=== PATIENT | male | born 1955 | race Caucasian/White ===

== ENCOUNTER 2017-04-24 14:36 | Emergency (ER) | payer SELFPAY ==
[~2017-04-24] VITALS: Ht 175.2 cm; Wt 72.6 kg
[~2017-04-24 14:36] MED LIST: ANAPROX DS550 MG PO; ASPIRIN CHILDRE81 MG PO; DAYPRO600 M1 PO; DELTASONE10 MG PO; FLEXERIL5 MG PO; HYDROCODONE BIT1 T11 PO; KEFLEX500 MG PO; LEVOFLOXACIN500 MG PO; MEDROL DOSEPAK4 MG PO; MOTRIN600 MG PO; MOTRIN800 MG PO; NKHM; NO DAILY MEDS; PREDNICOT20 MG PO; ROBAXIN750 MG PO; ROBITUSSIN DM 105 ML PO; TOBREX OPHTH S2.5 ML OPH; TRAMADOL HCL50 MG PO; VENTOLIN H0.09 MG/AC INH; VICODIN 500 MG-1 TAB PO; VICODIN ES 7501 TAB PO; VITAMIN B12500 MCG PO; ZITHROMAX Z PA250 MG PO
[2017-04-24 14:41] VITALS: BP 148/92
[2017-04-24] MEDS ORDERED: MELOXICAM15 MG PO (14:42)
[2017-04-24] MEDS ORDERED: PREDNISONE10 MG PO (15:01)
== END 2017-04-24 15:09 | disposition home or self-care (01) ==
LOC: ED 14:36
DX: L23.7 Allergic contact dermatitis due to plants, except food (principal); F17.200 Nicotine dependence, unspecified, uncomplicated; Z88.0 Allergy status to penicillin; Z79.899 Other long term (current) drug therapy

== ENCOUNTER 2017-06-13 17:43 | Emergency (ER) | payer SELFPAY ==
[~2017-06-13] VITALS: Ht 175.2 cm; Wt 77.1 kg
[~2017-06-13 17:43] MED LIST changes: +MELOXICAM15 MG PO; +PREDNISONE10 MG PO
[2017-06-13 18:05] VITALS: BP 157/88
[2017-06-13] MEDS ORDERED: MEDROL DOSEPAK4 MG PO (18:37)
[2017-06-13] MEDS ORDERED: VISTARIL25 MG PO (18:37)
== END 2017-06-13 21:37 | disposition home or self-care (01) ==
LOC: ED 17:43
DX: R21 Rash and other nonspecific skin eruption (principal); F17.200 Nicotine dependence, unspecified, uncomplicated; Z88.0 Allergy status to penicillin

== ENCOUNTER 2019-02-04 16:27 | Emergency (ER) | payer SELFPAY ==
[~2019-02-04] VITALS: Ht 175.2 cm; Wt 81.6 kg
--- NOTE | ~2019-02-04 | EKG ---
[place], [place] ELECTROCARDIOGRAM REPORT NAME: ANGELITA BOSCH UNIT #: [id number] ROOM: DOCTOR: RENATO DRAFT REPORT BIRTHDATE: [birth year] [facility] Test Date: 2019-02-04 Test Time: 16:33:37 Pat Name: ANGELITA BOSCH Department: Room: Gender: Automobile Repossessor: : 1955 Requested By: OFELIA FERNANDEZ Order Number: [id number] Reading MD: Miryam Bazan Measurements Intervals [place] Rate: 70 P: 78 PA: 138 QRS: 74 QRSD: 92 T: -52 QT: 396 QTc: 428 Interpretive Statements Sinus rhythm Atrial premature complexes Left atrial enlargement Borderline repolarization abnormality Baseline wander in lead(s) II,III,aVF,V1,V2,V6 No previous ECG available for comparison Electronically Signed On 02-05-2019 11:00:21 PDT by Miryam Bazan CM:EKGRPT:ELECTROCARDIOGRAM REPORT [id number] OFELIA GROSS DRAFT REPORT OFELIA FERNANDEZ M.D.
[~2019-02-04 16:27] MED LIST changes: +VISTARIL25 MG PO
[2019-02-04 16:47] LABS: BASO % 0.4 % (0.0-1.0); EOS # 0.1 10*3/uL (0.0-0.4); EOS % 0.8 % (1.0-4.0); HEMOGLOBIN 14.2 g/dl (14.0-18.0); LYMPH # 1.9 10*3/uL (1.3-4.4); LYMPH % 22.5 % (27.0-41.0); MEAN CELL VOLUME 94.3 fl (80.0-94.0); MEAN CORPUSCULAR HGB 32.6 pg (27.0-31.0); MEAN CORPUSCULAR HGB CONC 34.6 g/dl (33.0-37.0); MEAN PLATELET VOLUME 10.2 fl (9.6-12.3); MONO # 0.5 10*3/uL (0.1-1.0); NEUT # 5.8 10*3/uL (2.3-7.9); NEUT % 70.1 % (47.0-73.0); PLATELET COUNT AUTOMATED 216 10*3/uL (130-400); RED BLOOD COUNT 4.35 10*6/uL (4.50-5.90); RED CELL DISTRI WIDTH 12.2 % (0-14.5); WHITE BLOOD COUNT 8.3 10*3/uL (4.8-10.8)
[2019-02-04 17:02] LABS: ALBUMIN 3.6 gm/dl (3.1-4.5); ALKALINE PHOSPHATASE 112 U/L (45-117); BUN 23 mg/dl (7-24); CHLORIDE 111 mmol/L (98-107); CREATININE 1.29 mg/dL (0.70-1.30); POTASSIUM 4.4 mmol/L (3.5-5.1); SGOT/AST 23 IU/L (3-35); SGPT/ALT 20 U/L (12-78); SODIUM 143 mmol/L (136-145); TOTAL PROTEIN 7.3 gm/dL (6.4-8.2)
[2019-02-04 17:03] LABS: TROPONIN I < 0.015 ng/ml (<0.045)
[2019-02-04 17:13] LABS: ACT PARTIAL THROMBO TIME 27.6 SECONDS (20.8-31.5); INTERNATIONAL NORM RATIO 0.9 (2.0-3.5)
[2019-02-04 18:54] VITALS: BP 120/75
[2019-02-04] MEDS ORDERED: PROAIR HFA8.5 GM INH (18:54)
[2019-02-04] MEDS ORDERED: DOXYCYCLINE100 M3 PO (18:54)
[2019-02-04] MEDS ORDERED: PREDNISONE50 MG PO (18:54)
[2019-02-04] MEDS ORDERED: MUCINEX1200 M1 PO (18:54)
== END 2019-02-04 19:07 | disposition home or self-care (01) ==
LOC: ED 16:27
PROVIDERS: Emergency Medicine
DX: J20.9 Acute bronchitis, unspecified (principal); J01.80 Other acute sinusitis; F17.200 Nicotine dependence, unspecified, uncomplicated; J45.909 Unspecified asthma, uncomplicated; Z98.890 Other specified postprocedural states; Z88.0 Allergy status to penicillin; Z86.73 Personal history of transient ischemic attack (TIA), and cerebral infarction without residual deficits

== ENCOUNTER 2019-05-05 16:51 | Emergency (ER) | payer SELFPAY ==
[~2019-05-05] VITALS: Ht 175.2 cm; Wt 72.6 kg
[~2019-05-05 16:51] MED LIST changes: +DOXYCYCLINE100 M3 PO; +MUCINEX1200 M1 PO; +PREDNISONE50 MG PO; +PROAIR HFA8.5 GM INH
[2019-05-05 16:52] VITALS: BP 164/101
[2019-05-05] MEDS ORDERED: PREDNISONE50 MG PO (17:25)
[2019-05-05] MEDS ORDERED: VISTARIL25 MG PO (17:25)
== END 2019-05-05 17:37 | disposition home or self-care (01) ==
LOC: ED 16:51
DX: L25.9 Unspecified contact dermatitis, unspecified cause (principal); Z88.0 Allergy status to penicillin

== ENCOUNTER → 2019-10-07 | Outpatient (CLI) | payer SELFPAY | END | disposition home or self-care (01) | LOC: RAD 17:26 | DX: M25.551 Pain in right hip (principal); M25.552 Pain in left hip; M17.12 Unilateral primary osteoarthritis, left knee; Z88.0 Allergy status to penicillin ==

== ENCOUNTER 2020-04-23 04:56 | Emergency (ER) | payer OTHER ==
[~2020-04-23] VITALS: Ht 175.2 cm; Wt 72.6 kg
[2020-04-23 05:03] VITALS: BP 150/75
== END 2020-04-23 06:34 | disposition home or self-care (01) ==
LOC: ED 04:56
DX: T15.92XA Foreign body on external eye, part unspecified, left eye, initial encounter (principal); F32.9 Major depressive disorder, single episode, unspecified; J45.909 Unspecified asthma, uncomplicated; F17.200 Nicotine dependence, unspecified, uncomplicated; Z88.8 Allergy status to other drugs, medicaments and biological substances; Z88.0 Allergy status to penicillin; Z79.899 Other long term (current) drug therapy; X58.XXXA Exposure to other specified factors, initial encounter; Y93.89 Activity, other specified; Y92.89 Other specified places as the place of occurrence of the external cause; Y99.8 Other external cause status

== ENCOUNTER → 2020-05-28 | Outpatient (CLI) | payer OTHER | END | disposition home or self-care (01) | LOC: NM 09:59 | DX: M17.12 Unilateral primary osteoarthritis, left knee (principal); Z96.612 Presence of left artificial shoulder joint ==

== ENCOUNTER 2020-09-18 20:56 | Emergency (ER) | payer SELFPAY ==
[~2020-09-18] VITALS: Ht 175.2 cm; Wt 77.6 kg
[2020-09-18 21:05] VITALS: BP 151/94
[2020-09-18 21:34] LABS: BASO % 0.1 % (0.0-1.0); EOS % 0.2 % (1.0-4.0); LYMPH # 1.8 10*3/uL (1.3-4.4); LYMPH % 11.6 % (27.0-41.0); MEAN CELL VOLUME 91.9 fl (80.0-94.0); MEAN CORPUSCULAR HGB 32.2 pg (27.0-31.0); MEAN PLATELET VOLUME 9.7 fl (9.6-12.3); MONO # 0.9 10*3/uL (0.1-1.0); MONO % 5.5 % (3.0-9.0); NEUT # 12.8 10*3/uL (2.3-7.9); NEUT % 82.3 % (47.0-73.0); PLATELET COUNT AUTOMATED 228 10*3/uL (130-400); RED BLOOD COUNT 4.57 10*6/uL (4.50-5.90); WHITE BLOOD COUNT 15.6 10*3/uL (4.8-10.8)
[2020-09-18 21:50] LABS: ALBUMIN 4.1 gm/dl (3.1-4.5); ALKALINE PHOSPHATASE 79 U/L (45-117); BUN 17 mg/dl (7-24); CHLORIDE 105 mmol/L (98-107); CREATININE 1.26 mg/dL (0.70-1.30); LIPASE 122 U/L (73-393); POTASSIUM 3.7 mmol/L (3.5-5.1); SGOT/AST 17 IU/L (3-35); SGPT/ALT 23 U/L (12-78); SODIUM 139 mmol/L (136-145)
[2020-09-19] MEDS ORDERED: ZOFRAN4 MG PO (00:14)
[2020-09-19] MEDS ORDERED: FLOMAX0.4 MG PO (00:14)
== END 2020-09-19 01:18 | disposition home or self-care (01) ==
LOC: ED 20:56
PROVIDERS: Internal Medicine
DX: N20.9 Urinary calculus, unspecified (principal); D72.829 Elevated white blood cell count, unspecified; Z79.899 Other long term (current) drug therapy

== ENCOUNTER 2020-09-23 06:38 | Emergency (ER) | payer SELFPAY ==
[~2020-09-23] VITALS: Wt 77.1 kg
[~2020-09-23 06:38] MED LIST changes: +FLOMAX0.4 MG PO; +ZOFRAN4 MG PO
[2020-09-23 06:50] VITALS: BP 181/95
[2020-09-23 07:43] LABS: BASO % 0.1 % (0.0-1.0); EOS % 0.3 % (1.0-4.0); HEMATOCRIT 39.9 % (42.0-52.0); LYMPH # 1.3 10*3/uL (1.3-4.4); MEAN CELL VOLUME 90.1 fl (80.0-94.0); MEAN CORPUSCULAR HGB 32.3 pg (27.0-31.0); MEAN CORPUSCULAR HGB CONC 35.8 g/dl (33.0-37.0); MEAN PLATELET VOLUME 9.7 fl (9.6-12.3); MONO # 0.8 10*3/uL (0.1-1.0); MONO % 8.7 % (3.0-9.0); NEUT # 7.1 10*3/uL (2.3-7.9); NEUT % 76.6 % (47.0-73.0); PLATELET COUNT AUTOMATED 206 10*3/uL (130-400); RED BLOOD COUNT 4.43 10*6/uL (4.50-5.90); RED CELL DISTRI WIDTH 11.9 % (0-14.5); WHITE BLOOD COUNT 9.2 10*3/uL (4.8-10.8)
[2020-09-23 07:58] LABS: ALBUMIN 3.7 gm/dl (3.1-4.5); CREATININE 1.82 mg/dL (0.70-1.30); TOTAL PROTEIN 6.9 gm/dL (6.4-8.2)
[2020-09-23 09:07] LABS: BILIRUBIN Negative (Negative); BLOOD 2+ (Negative); CLARITY Clear (Clear); COLOR Yellow (Yellow); GLUCOSE Negative (Negative); KETONE 1+ (Negative); LEUKO ESTERASE Negative (Negative); NITRITE Negative (Negative); PH 7.5 (4.5-8.0); SPECIFIC GRAVITY 1.015 (1.001-1.030)
[2020-09-23 09:29] LABS: RBC 41-50 rbc/hpf (0-2)
== END 2020-09-23 09:48 | disposition home or self-care (01) ==
LOC: ED 06:38
PROVIDERS: Emergency Medicine
DX: N20.9 Urinary calculus, unspecified (principal); F32.9 Major depressive disorder, single episode, unspecified; J45.909 Unspecified asthma, uncomplicated; F17.200 Nicotine dependence, unspecified, uncomplicated; Z88.0 Allergy status to penicillin; Z79.899 Other long term (current) drug therapy

== ENCOUNTER 2022-02-16 16:56 | Emergency (ER) | payer SELFPAY ==
[~2022-02-16] VITALS: Ht 175.2 cm; Wt 72.6 kg
[2022-02-16 17:05] VITALS: BP 181/96
[2022-02-16 18:15] LABS: BASO % 0.2 % (0.0-1.0); EOS # 0.1 10*3/uL (0.0-0.4); EOS % 1.3 % (1.0-4.0); HEMATOCRIT 41.5 % (42.0-52.0); LYMPH # 1.3 10*3/uL (1.3-4.4); LYMPH % 23.2 % (27.0-41.0); MEAN CELL VOLUME 93.9 fl (80.0-94.0); MEAN CORPUSCULAR HGB 32.1 pg (27.0-31.0); MEAN CORPUSCULAR HGB CONC 34.2 g/dl (33.0-37.0); MEAN PLATELET VOLUME 9.4 fl (9.6-12.3); MONO # 0.5 10*3/uL (0.1-1.0); MONO % 8.3 % (3.0-9.0); NEUT # 3.7 10*3/uL (2.3-7.9); NEUT % 66.8 % (47.0-73.0); PLATELET COUNT AUTOMATED 233 10*3/uL (130-400); RED BLOOD COUNT 4.42 10*6/uL (4.50-5.90); RED CELL DISTRI WIDTH 12.5 % (0-14.5); WHITE BLOOD COUNT 5.6 10*3/uL (4.8-10.8)
[2022-02-16 18:27] LABS: ACT PARTIAL THROMBO TIME 31.4 SECONDS (20.0-32.1)
[2022-02-16 18:37] LABS: ALKALINE PHOSPHATASE 101 U/L (45-117); BUN 13 mg/dl (7-24); CHLORIDE 106 mmol/L (98-107); CREATININE 1.07 mg/dL (0.70-1.30); LIPASE 107 U/L (73-393); SGOT/AST 13 IU/L (3-35); SGPT/ALT 19 U/L (12-78); SODIUM 141 mmol/L (136-145); TOTAL PROTEIN 6.9 gm/dL (6.4-8.2)
[2022-02-16] MEDS ORDERED: ZITHROMAX250 MG PO (18:58)
== END 2022-02-16 19:10 | disposition home or self-care (01) ==
LOC: ED 16:56
PROVIDERS: Emergency Medicine
DX: J20.9 Acute bronchitis, unspecified (principal); Z88.0 Allergy status to penicillin; Z90.89 Acquired absence of other organs; Z98.890 Other specified postprocedural states; F17.200 Nicotine dependence, unspecified, uncomplicated

== ENCOUNTER → 2022-04-27 | Outpatient (CLI) | payer MEDICARE ==
[~2022-04-27] MED LIST changes: +ZITHROMAX250 MG PO
== END | disposition home or self-care (01) ==
LOC: RAD 15:22
PROVIDERS: ATTEND Chiropractor Orthopedic
DX: M25.861 Other specified joint disorders, right knee (principal); M17.11 Unilateral primary osteoarthritis, right knee; M25.461 Effusion, right knee

== ENCOUNTER 2022-05-08 08:49 | Emergency (ER) | payer OTHER ==
[~2022-05-08] VITALS: Ht 175.2 cm; Wt 72.6 kg
[2022-05-08 09:01] VITALS: BP 164/111
== END 2022-05-08 10:09 | disposition home or self-care (01) ==
LOC: ED 08:49
DX: S90.32XA Contusion of left foot, initial encounter (principal); Z88.0 Allergy status to penicillin; Z90.89 Acquired absence of other organs; F17.210 Nicotine dependence, cigarettes, uncomplicated; W18.39XA Other fall on same level, initial encounter; Y93.89 Activity, other specified; Y92.89 Other specified places as the place of occurrence of the external cause; Y99.8 Other external cause status

== ENCOUNTER 2022-12-05 00:01 | Emergency (ER) | payer MEDICARE ==
[~2022-12-05] VITALS: Wt 73.9 kg
[2022-12-05 00:14] VITALS: BP 167/89
== END 2022-12-05 03:14 | disposition home or self-care (01) ==
LOC: ED 00:01
DX: J06.9 Acute upper respiratory infection, unspecified (principal); R51.9 Headache, unspecified; Z20.822 Contact with and (suspected) exposure to COVID-19; Z88.0 Allergy status to penicillin; Z90.89 Acquired absence of other organs; Z98.890 Other specified postprocedural states

== ENCOUNTER 2023-11-08 04:52 | Emergency (ER) | payer MEDICARE ==
[~2023-11-08] VITALS: Ht 175.2 cm; Wt 65.8 kg
[2023-11-08 06:00] LABS: BASO % 0.2 % (0.0-1.0); HEMATOCRIT 43.6 % (42.0-52.0); LYMPH % 8.1 % (27.0-41.0); MEAN CELL VOLUME 91.2 fl (80.0-94.0); MEAN CORPUSCULAR HGB 31.8 pg (27.0-31.0); MEAN CORPUSCULAR HGB CONC 34.9 g/dl (33.0-37.0); MEAN PLATELET VOLUME 9.7 fl (9.6-12.3); MONO # 0.3 10*3/uL (0.1-1.0); MONO % 2.6 % (3.0-9.0); NEUT # 10.8 10*3/uL (2.3-7.9); NEUT % 87.2 % (47.0-73.0); PLATELET COUNT AUTOMATED 233 10*3/uL (130-400); RED BLOOD COUNT 4.78 10*6/uL (4.50-5.90); RED CELL DISTRI WIDTH 12.3 % (0-14.5); WHITE BLOOD COUNT 12.4 10*3/uL (4.8-10.8)
[2023-11-08 06:21] LABS: ALKALINE PHOSPHATASE 94 U/L (46-116); BUN 14 mg/dl (9-23); CHLORIDE 103 mmol/L (98-107); LIPASE 34 U/L (12-53); SGPT/ALT 10 U/L (5-49); TOTAL PROTEIN 7.3 gm/dL (6.0-8.0)
[2023-11-08 06:22] LABS: ETHYL ALCOHOL < 3.0 mg/dl (<3)
[2023-11-08 06:26] LABS: ACT PARTIAL THROMBO TIME 27.1 SECONDS (20.0-32.1)
[2023-11-08 10:15] VITALS: BP 164/78
[2023-11-08] MEDS ORDERED: ONDANSETRON4 MG SL (10:35)
== END 2023-11-08 10:51 | disposition home or self-care (01) ==
LOC: ED 04:52
PROVIDERS: Family Medicine
DX: R10.9 Unspecified abdominal pain (principal); R11.2 Nausea with vomiting, unspecified; F32.A Depression, unspecified; J45.909 Unspecified asthma, uncomplicated; Z87.442 Personal history of urinary calculi; Z88.0 Allergy status to penicillin; Z98.890 Other specified postprocedural states; Z90.89 Acquired absence of other organs; Z79.899 Other long term (current) drug therapy; F17.210 Nicotine dependence, cigarettes, uncomplicated

== ENCOUNTER 2024-06-03 13:51 | Emergency (ER) | payer MEDICARE ==
[~2024-06-03] VITALS: Ht 175.2 cm; Wt 72.6 kg
[~2024-06-03 13:51] MED LIST changes: +ONDANSETRON4 MG SL
[2024-06-03 14:42] VITALS: BP 193/84
[2024-06-03] MEDS ORDERED: SODIUM CHLORIDE 0.9% 1,000 ML IV ONE (14:55)
[2024-06-03] MEDS ORDERED: MORPHINE Sulfate 2 MG/ML SYR IV ONE ×2 (14:55→17:10)
[2024-06-03] MEDS ORDERED: Ondansetron Hydrochloride 4 MG/2 ML VIAL IV ONE ×2 (14:55→18:10)
[2024-06-03 15:14] LABS: BASO % 0.1 % (0.0-1.0); HEMATOCRIT 39.9 % (42.0-52.0); LYMPH # 1.1 10*3/uL (1.3-4.4); LYMPH % 9.8 % (27.0-41.0); MEAN CELL VOLUME 92.8 fl (80.0-94.0); MEAN CORPUSCULAR HGB 31.9 pg (27.0-31.0); MEAN CORPUSCULAR HGB CONC 34.3 g/dl (33.0-37.0); MEAN PLATELET VOLUME 9.4 fl (9.6-12.3); MONO # 0.3 10*3/uL (0.1-1.0); MONO % 2.2 % (3.0-9.0); NEUT # 10.2 10*3/uL (2.3-7.9); NEUT % 87.3 % (47.0-73.0); PLATELET COUNT AUTOMATED 227 10*3/uL (130-400); RED CELL DISTRI WIDTH 13.5 % (0-14.5); WHITE BLOOD COUNT 11.6 10*3/uL (4.8-10.8)
[2024-06-03 15:30] LABS: ALKALINE PHOSPHATASE 94 U/L (46-116); BUN 12 mg/dl (9-23); CHLORIDE 102 mmol/L (98-107); LIPASE 29 U/L (12-53); POTASSIUM 4.1 mmol/L (3.4-5.1); SGPT/ALT 11 U/L (5-49); TOTAL PROTEIN 6.7 gm/dL (6.0-8.0)
[2024-06-03] MEDS ORDERED: Ketorolac Tromethamine 30 MG/ML VIAL IV ONE (16:20)
[2024-06-03 16:29] LABS: BILIRUBIN Negative (Negative); BLOOD 2+ (Negative); CLARITY Turbid (Clear); COLOR Yellow (Yellow); GLUCOSE Negative (Negative); KETONE Negative (Negative); LEUKO ESTERASE Trace (Negative); NITRITE Negative (Negative); UROBILINOGEN 0.2 E.U./dl (0.0-1.0)
[2024-06-03 16:39] LABS: BACTERIA 2+; RBC 21-30 rbc/hpf (0-2)
[2024-06-03] MEDS ORDERED: Ondansetron4 MG PO (18:07)
== END 2024-06-03 18:17 | disposition home or self-care (01) ==
LOC: ED 13:51
PROVIDERS: Physician Assistant Medical
DX: N20.0 Calculus of kidney (principal); R11.2 Nausea with vomiting, unspecified; R53.1 Weakness; I10 Essential (primary) hypertension; F17.210 Nicotine dependence, cigarettes, uncomplicated; Z88.0 Allergy status to penicillin; Z79.899 Other long term (current) drug therapy; Z86.73 Personal history of transient ischemic attack (TIA), and cerebral infarction without residual deficits; Z98.890 Other specified postprocedural states

== ENCOUNTER 2024-07-27 01:59 | Inpatient (IN) | payer OTHER ==
[~2024-07-27] VITALS: Ht 175 cm; Wt 64.0 kg
[~2024-07-27 01:59] MED LIST changes: +Ondansetron4 MG PO
[2024-07-27 02:09] VITALS: BP 211/109
[2024-07-27] MEDS ORDERED: MORPHINE Sulfate 2 MG/ML SYR IV ONE ×2 (03:10→04:15)
[2024-07-27] MEDS ORDERED: hydrALAZINE hydrochloride 20 MG/ML VIAL IV ONE ×2 (03:10→04:40)
[2024-07-27] MEDS ORDERED: Ondansetron Hydrochloride 4 MG/2 ML VIAL IV ONE (03:10)
[2024-07-27 03:17] LABS: BASO % 0.3 % (0.0-1.0); EOS % 0.2 % (1.0-4.0); HEMATOCRIT 40.7 % (42.0-52.0); LYMPH # 1.7 10*3/uL (1.3-4.4); LYMPH % 15.9 % (27.0-41.0); MEAN CELL VOLUME 91.7 fl (80.0-94.0); MEAN CORPUSCULAR HGB 31.8 pg (27.0-31.0); MEAN CORPUSCULAR HGB CONC 34.6 g/dl (33.0-37.0); MEAN PLATELET VOLUME 9.1 fl (9.6-12.3); MONO # 0.7 10*3/uL (0.1-1.0); MONO % 6.2 % (3.0-9.0); NEUT # 8.5 10*3/uL (2.3-7.9); NEUT % 77.1 % (47.0-73.0); PLATELET COUNT AUTOMATED 240 10*3/uL (130-400); RED BLOOD COUNT 4.44 10*6/uL (4.50-5.90)
[2024-07-27 03:56] LABS: BILIRUBIN Negative (Negative); BLOOD Trace-Lysed (Negative); CLARITY Clear (Clear); COLOR Yellow (Yellow); GLUCOSE Negative (Negative); KETONE Negative (Negative); LEUKO ESTERASE Negative (Negative); NITRITE Negative (Negative); PH 6.5 (4.5-8.0); SPECIFIC GRAVITY 1.015 (1.001-1.030); UROBILINOGEN 0.2 E.U./dl (0.0-1.0)
[2024-07-27 04:02] LABS: BUN 30 mg/dl (9-23); CHLORIDE 100 mmol/L (98-107); LIPASE 52 U/L (12-53); POTASSIUM 3.8 mmol/L (3.4-5.1)
[2024-07-27 04:36] VITALS: BP 195/105
[2024-07-27] MEDS ORDERED: SODIUM CHLORIDE 0.9% 1,000 ML IV ONE ×2 (05:00→11:40)
[2024-07-27 05:42] VITALS: BP 147/79
[2024-07-27] MEDS ORDERED: Acetaminophen/Hydrocodone 5 MG/325 MG TABLET PO PRN (08:05)
[2024-07-27] MEDS ORDERED: ACETAMINOPHEN 325 MG TAB PO PRN (08:05)
[2024-07-27] MEDS ORDERED: BISACODYL 5 MG TAB PO PRN (08:05)
[2024-07-27] MEDS ORDERED: Magnesium Hydroxide 30 ML UDC PO PRN (08:05)
[2024-07-27] MEDS ORDERED: MORPHINE Sulfate 2 MG/ML SYR IV PRN (08:05)
[2024-07-27] MEDS ORDERED: Ondansetron Hydrochloride 4 MG/2 ML VIAL IV PRN (08:05)
[2024-07-27] MEDS ORDERED: Enoxaparin Sodium 40 MG/0.4 ML SYR SC SCH (10:00)
[2024-07-27] MEDS ORDERED: Ketorolac Tromethamine 15 MG/ML VIAL IV ONE (11:40)
[2024-07-27] MEDS ORDERED: Tamsulosin Hydrochloride 0.4 MG CAP PO SCH (13:10)
[2024-07-27 17:42] VITALS: BP 172/82
[2024-07-27] MEDS ORDERED: Nicotine 21 MG PATCH T SCH (18:07)
[2024-07-27 20:00] VITALS: BP 164/80
[2024-07-28] VITALS (9 sets, daily range): BP systolic 150–202; BP diastolic 78–107
[2024-07-28] MEDS ORDERED: Pantoprazole Sodium 40 MG TAB PO SCH (06:00)
[2024-07-28] MEDS ORDERED: Pantoprazole Sodium 40 MG VIAL IV SCH (06:00)
[2024-07-28 06:36] LABS: BASO % 0.2 % (0.0-1.0); EOS # 0.1 10*3/uL (0.0-0.4); EOS % 0.8 % (1.0-4.0); HEMATOCRIT 39.3 % (42.0-52.0); LYMPH # 2.1 10*3/uL (1.3-4.4); LYMPH % 24.6 % (27.0-41.0); MEAN CORPUSCULAR HGB 31.9 pg (27.0-31.0); MEAN CORPUSCULAR HGB CONC 35.1 g/dl (33.0-37.0); MEAN PLATELET VOLUME 9.5 fl (9.6-12.3); MONO # 0.6 10*3/uL (0.1-1.0); MONO % 6.7 % (3.0-9.0); NEUT # 5.8 10*3/uL (2.3-7.9); NEUT % 67.5 % (47.0-73.0); PLATELET COUNT AUTOMATED 218 10*3/uL (130-400); RED BLOOD COUNT 4.32 10*6/uL (4.50-5.90); RED CELL DISTRI WIDTH 13.1 % (0-14.5); WHITE BLOOD COUNT 8.6 10*3/uL (4.8-10.8)
[2024-07-28 07:00] LABS: ALKALINE PHOSPHATASE 78 U/L (46-116); CHLORIDE 105 mmol/L (98-107); FREE T4 1.31 ng/dl (0.89-1.76); POTASSIUM 3.9 mmol/L (3.4-5.1); SGPT/ALT 10 U/L (5-49); TOTAL PROTEIN 5.8 gm/dL (6.0-8.0)
[2024-07-28 07:03] LABS: BUN 14 mg/dl (9-23)
[2024-07-28] MEDS ORDERED: LISINOPRIL 10 MG TAB PO SCH (10:00)
[2024-07-28] MEDS ORDERED: hydrALAZINE hydrochloride 20 MG/ML VIAL IV ONE ×3 (13:00→23:10)
[2024-07-28] MEDS ORDERED: Promethazine Hydrochloride 25 MG/ML VIAL IV PRN (13:55)
[2024-07-28] MEDS ORDERED: SODIUM CHLORIDE 0.9% 500 ML IV ONE (14:05)
[2024-07-28] MEDS ORDERED: LISINOPRIL 20 MG TAB PO SCH (23:10)
[2024-07-29] VITALS: BP 150/88
[2024-07-29 00:54] VITALS: BP 170/100
[2024-07-29 06:04] VITALS: BP 141/83
[2024-07-29 06:57] LABS: BASO % 0.3 % (0.0-1.0); EOS % 0.3 % (1.0-4.0); HEMATOCRIT 44.8 % (42.0-52.0); LYMPH # 2.1 10*3/uL (1.3-4.4); LYMPH % 18.1 % (27.0-41.0); MEAN CELL VOLUME 92.8 fl (80.0-94.0); MEAN CORPUSCULAR HGB 31.3 pg (27.0-31.0); MEAN CORPUSCULAR HGB CONC 33.7 g/dl (33.0-37.0); MEAN PLATELET VOLUME 9.5 fl (9.6-12.3); MONO # 0.8 10*3/uL (0.1-1.0); MONO % 6.5 % (3.0-9.0); NEUT # 8.7 10*3/uL (2.3-7.9); NEUT % 74.5 % (47.0-73.0); PLATELET COUNT AUTOMATED 268 10*3/uL (130-400); RED BLOOD COUNT 4.83 10*6/uL (4.50-5.90); RED CELL DISTRI WIDTH 13.1 % (0-14.5); WHITE BLOOD COUNT 11.6 10*3/uL (4.8-10.8)
[2024-07-29 07:18] LABS: BUN 12 mg/dl (9-23); CHLORIDE 101 mmol/L (98-107); POTASSIUM 3.5 mmol/L (3.4-5.1)
[2024-07-29 08:00] VITALS: BP 134/90
[2024-07-29] MEDS ORDERED: LISINOPRIL 20 MG TAB PO SCH (10:00)
[2024-07-29] MEDS ORDERED: LISINOPRIL20 MG PO (10:38)
[2024-07-29] MEDS ORDERED: TAMSULOSIN HCL0.4 MG PO (10:38)
[2024-07-29] MEDS ORDERED: HYDROCODONE-AC1 EAC1 PO (10:38)
== END 2024-07-29 13:00 | disposition home or self-care (01) | DRG 640 ==
LOC: ED 01:59 → EDHOLD 06:19 → 4E 06:19
PROVIDERS: Emergency Medicine; Student in an Organized Health Care Education/Training Program; ADMIT Internal Medicine; ATTEND Internal Medicine
DX: E87.1 Hypo-osmolality and hyponatremia (principal); N17.0 Acute kidney failure with tubular necrosis; I16.1 Hypertensive emergency; N20.0 Calculus of kidney; K57.90 Diverticulosis of intestine, part unspecified, without perforation or abscess without bleeding; D72.829 Elevated white blood cell count, unspecified; R73.9 Hyperglycemia, unspecified; F17.210 Nicotine dependence, cigarettes, uncomplicated; Z78.9 Other specified health status; Z88.0 Allergy status to penicillin

== ENCOUNTER 2024-11-25 10:08 | Emergency (ER) | payer OTHER ==
[~2024-11-25] VITALS: Ht 175.2 cm; Wt 65.8 kg
[~2024-11-25 10:08] MED LIST changes: +HYDROCODONE-AC1 EAC1 PO; +LISINOPRIL20 MG PO; +TAMSULOSIN HCL0.4 MG PO
[2024-11-25] MEDS ORDERED: Acetaminophen/Oxycodone 5 MG/325 MG TABLET PO ONE (11:00)
[2024-11-25 12:22] LABS: BASO % 0.2 % (0.0-1.0); HEMATOCRIT 43.9 % (42.0-52.0); MEAN CELL VOLUME 93.6 fl (80.0-94.0); MEAN CORPUSCULAR HGB 32.2 pg (27.0-31.0); MEAN CORPUSCULAR HGB CONC 34.4 g/dl (33.0-37.0); MONO # 0.7 10*3/uL (0.1-1.0); MONO % 6.3 % (3.0-9.0); NEUT # 9.3 10*3/uL (2.3-7.9); NEUT % 78.9 % (47.0-73.0); PLATELET COUNT AUTOMATED 282 10*3/uL (130-400); RED BLOOD COUNT 4.69 10*6/uL (4.50-5.90); RED CELL DISTRI WIDTH 12.6 % (0-14.5); WHITE BLOOD COUNT 11.8 10*3/uL (4.8-10.8)
[2024-11-25 12:44] LABS: BUN 12 mg/dl (9-23); CHLORIDE 97 mmol/L (98-107); POTASSIUM 3.9 mmol/L (3.4-5.1)
[2024-11-25] MEDS ORDERED: cloNIDine Hydrochloride 0.1 MG TAB PO ONE (13:05)
[2024-11-25] MEDS ORDERED: MIRALAX POWDER17 G1 PO (14:03)
[2024-11-25 14:14] VITALS: BP 172/100
[2024-11-26] MEDS ORDERED: ZESTRIL40 MG PO (11:26)
[2024-11-28] MEDS ORDERED: VITAMIN D3125 MC1 PO (10:58)
[2024-11-28] MEDS ORDERED: PHARMASSURE V500 MCG PO (10:58)
[2024-11-28] MEDS ORDERED: AMLODIPINE BESYL5 MG PO (10:58)
== END 2024-11-25 14:15 | disposition home or self-care (01) ==
LOC: ED 10:08
PROVIDERS: Internal Medicine
DX: I16.0 Hypertensive urgency (principal); K59.00 Constipation, unspecified; F17.210 Nicotine dependence, cigarettes, uncomplicated; Z88.0 Allergy status to penicillin; Z79.899 Other long term (current) drug therapy; Z98.890 Other specified postprocedural states